=== PATIENT | female | born 1955 | race Two or more races ===

== ENCOUNTER 2024-02-13 18:56 | Emergency (ER) | payer MEDICARE, MEDICAID, SELFPAY ==
[2024-02-13 18:56] VITALS: BMI 18.0
[2024-02-13 19:38] VITALS: BP 158/83; PULSE 77; RESP 16; TEMP 36.8; O2SAT 100
--- NOTE | 2024-02-13 19:42 | XR_ITS ---
Examination: Shoulder,right, 3 views Technique: Shoulder AP internal rotation, AP external rotation, Y view shoulder, 3 views Exam date and time :1257 hrs. Indications: Patient fell today with injury to the shoulder, shoulder pain. Findings: Acute displaced fracture axillary border of the scapula subglenoid, 12 mm offset at the fracture site Impression: Acute fracture axillary border of the scapula
--- NOTE | 2024-02-13 19:42 | XR_ITS ---
Examination: Clavicle 2 views, right Technique: Clavicle AP, angled up AP, 2 views Exam date and time: February 13, 2024 1937 hrs. Indications: Patient fell today with injury to the shoulder, shoulder pain Findings: Acute fracture medial body of the scapula, 12 mm offset Clavicle intact Impression: Acute displaced fracture medial body of the clavicle
--- NOTE | 2024-02-13 19:42 | XR_ITS ---
Examination: Humerus 2 views right Technique: Humerus, AP lateral 2 views Date and time of exam: February 13, 2024 1957 hrs. Indications: Patient fell today with injury to the arm, arm pain Findings: No shoulder dislocation Humerus intact Acute fracture medial body scapula 12 mm offset Impression: Acute displaced scapular fracture
--- NOTE | 2024-02-13 19:43 | PD.EDRME ---
Rapid Medical Screening Exam E Arrival date/time: 02/13/24 18:56 68-year-old female presents emergency department complaining of right shoulder and upper arm pain status post accidental ground-level fall. Patient denies any LOC or injury to head or neck. Chief Complaint: Extremity Injury, Upper Time Seen by Provider: 02/13/24 19:42 Vital signs: Vital Signs Temperature 98.3 F 02/13/24 19:38 Pulse Rate 77 02/13/24 19:38 Respiratory Rate 16 02/13/24 19:38 Blood Pressure 158/83 H 02/13/24 19:38 Pulse Oximetry (%) 100 02/13/24 19:38 Oxygen Delivery Method Room Air 02/13/24 19:38 Vital signs reviewed by provider: Yes
[2024-02-13] MEDS: HYDROcodone/APAP 5/325 TABLET 1 TAB PO (20:24)
--- NOTE | 2024-02-13 20:58 | PD.EDUPEX ---
Upper Extremity Injury RME/HPI General Chief Complaint: Extremity Injury, Upper Stated Complaint: FALL AND HAS RT SHOULDER PAIN Time Seen by Provider: 02/13/24 19:42 Source: patient Arrival date/time: 02/13/24 18:56 68-year-old female presents emergency department complaining of right shoulder and upper arm pain status post accidental ground-level fall. Patient denies any LOC or injury to head or neck. Mode of arrival: ambulatory Limitations: no limitations RME / HPI RME / HPI narrative: 02/13/24 18:56 68-year-old female presents emergency department complaining of right shoulder and upper arm pain status post accidental ground-level fall. Patient denies any LOC or injury to head or neck. Related Data Home Medications ?Medication ?Instructions ?Recorded ?Confirmed amlodipine 10 mg tablet (Norvasc) 10 mg PO QDAY #0 tabs 04/29/15 06/03/23 aspirin 81 mg tablet,delayed 81 mg PO QDAY ##0 04/29/15 06/03/23 release (John Low Dose Aspirin) ergocalciferol (vitamin D2) 1,250 1 cap PO QWEEK 01/05/22 06/02/23 mcg (50,000 unit) capsule gabapentin 100 mg capsule 100 mg PO QDAY 02/17/23 06/02/23 Previous Rx's ?Medication ?Instructions ?Recorded hydrocodone 5 mg-acetaminophen 325 1 tab PO BID PRN pain #10 tabs 02/13/24 mg tablet Allergies Allergy/AdvReac Type Severity Reaction Status Date / Time No Known Allergies Allergy Verified 02/13/24 19:00 Review of Systems Review of Systems Systems Reviewed: All systems reviewed, normal except as documented Constitutional Constitutional: Reports system reviewed and no additional complaints, except as documented, Denies body ache(s), Denies chills and Denies fever(s) Eyes Eyes: Reports system reviewed and no additional complaints, except as documented and Denies change in vision ENT Ears, Nose, Mouth, and Throat: Reports system reviewed and no additional complaints, except as documented, Denies disequilibrium, Denies dizziness, Denies sore throat and Denies vertigo Cardiovascular Cardiovascular: Reports system reviewed and no additional complaints, except as documented, Denies chest pain and Denies dyspnea Respiratory Respiratory: Reports system reviewed and no additional complaints, except as documented, Denies chest congestion, Denies cough and Denies dyspnea Gastrointestinal Gastrointestinal: Reports system reviewed and no additional complaints, except as documented, Denies abdominal pain, Denies nausea and Denies vomiting Musculoskeletal Musculoskeletal: Reports system reviewed and no additional complaints, except as documented, Denies abnormal gait and Reports arthralgias Integumentary/Breasts Skin/Breast: Reports system reviewed and no additional complaints, except as documented, Denies erythema, Denies rash and Denies wounds Neurologic Neurologic: Reports system reviewed and no additional complaints, except as documented, Denies abnormal gait, Denies disequilibrium, Denies dizziness and Denies vertigo Past Medical History Past Medical History NEUROLOGIC: Negative Neurological Disorders, Seizures or Migraine CARDIAC: Positive Cardiac Disorders and Hypertension (TAKES MED); Negative Hypercholesterolemia, Congestive Heart Failure, Edema, Cellulitis or Varicose Veins RESPIRATORY: Negative Chronic Obstructive Pulmonary Disease (COPD), Asthma, Tuberculosis, Pulmonary Embolism or Sleep Apnea GASTROINTESTINAL: Positive Gastrointestinal Disorders, Gall Bladder Disease (LAP RAVEN), Ulcer and Gastroesophageal Reflux Disease; Negative Hepatitis GENITOURINARY: Negative Genitourinary Disorders or Renal Disease REPRODUCTIVE: Positive Previous Pregnancies (X5); Negative Pelvic Inflammatory Disease MUSCULOSKELETAL: Positive Musculoskeletal Disorders, Arthritis, Osteoporosis and Degenerative Disk Disease ENT: Positive Cataracts (left) and Glaucoma (NO MED AT THIS TIME) ENDOCRINE: Negative Endocrine Disorders, Diabetes Mellitus Type 1 or Diabetes Mellitus Type 2 HEMATOLOGIC: Negative Blood Disorders OTHER HISTORY: Positive Chicken Pox; Negative Hospitalization, Autoimmune Disease, Shingles, Falls, Blood Transfusions, Blood Transfusion Reaction, Anesthesia Reactions, Chemotherapy, Radiation Therapy, MRSA, Measles, Mumps or Cancer Family History FAMILY HISTORY: Positive Family Respiratory Disorders (BROTHER (ASTHMA,LUNG)), Family Cardiac Disorders (MOTHER,FATHER,BROTHER,SISTER (HTN)), Family Gastrointestinal Problems (SISTER (STOMACH)), Family Cancer (SISTER (STOMACH),BROTHER (LUNG)) and Family Surgery (SISTER,BROTHER,FATHER,MOTHER); Negative Family Psychiatric Problems or Family Anesthesia Reaction Surgical History SURGICAL: Positive Abdominal Surgery; Negative Cardiac Surgery, Pacemaker, Endocrine Surgery, Ear Surgery or Joint Replacement Social History SMOKING STATUS: Current some day smoker SECOND HAND EXPOSURE: No ED Exam General Limitations: Present no limitations General appearance: Present alert and in no apparent distress Head Head exam: Present atraumatic Eye Eye exam: Present normal appearance, PERRL and EOMI ENT ENT exam: Present normal exam, normal oropharynx and mucous membranes moist Neck Neck exam: Present normal inspection, full ROM and trachea midline Chest Chest inspection: Present normal inspection and symmetric chest wall rise Respiratory Respiratory exam: Present normal lung sounds bilaterally Cardiovascular Cardiovascular exam: Present regular rate, normal rhythm and normal heart sounds Abdominal Exam Abdominal exam: Present soft and normal bowel sounds Extremities Exam Extremities exam: Present normal inspection and full ROM Expanded Upper Extremity Exam Shoulder exam: Present full ROM (Limited active range of motion right shoulder) and tenderness (Right shoulder) Vascular exam: Normal capillary refill Back Exam Back exam: Present normal inspection and full ROM Neurological Exam Neurological exam: Present alert, oriented X3 and CN II-XII intact Psychiatric Psychiatric exam: Present normal affect and normal mood Skin Skin exam: Present warm, dry, intact and normal color Course Quality Measures none Orders Category Date Time Status sling [Splint / Immobilizer] STAT Care 02/13/24 20:59 Completed XR clavicle RT Stat Exams 02/13/24 19:42 Completed XR humerus RT min 2V Stat Exams 02/13/24 19:42 Completed XR shoulder RT min 2V Stat Exams 02/13/24 19:42 Completed HYDROcodone*/APAP 5/325 [[place] 5/325] Med 02/13/24 19:42 Discontinued 1 tab PO X1 ONE Vital Signs Vital signs: Vital Signs Temperature 98.3 F 02/13/24 19:38 Pulse Rate 77 02/13/24 19:38 Respiratory Rate 16 02/13/24 19:38 Blood Pressure 158/83 H 02/13/24 19:38 Pulse Oximetry (%) 100 02/13/24 19:38 Oxygen Delivery Method Room Air 02/13/24 19:38 100% room air within normal limits Procedures -ED Splint Fabrication: Pre-Fabricated Type: Other (Sling) Reason for Splint: Optimal Positioning, Pain Management, Minimize Deformities and Support Joint/Muscle Site condition: Intact Circulation Distal to Splint: Yes Movement Distal to Splint: Yes Senation Distal to Splint: Yes Tolerance: Tolerates Well Extremity Injury MDM Narrative MDM Narrative:: 68-year-old female presents emergency department complaining of right shoulder and upper arm pain status post accidental ground-level fall. Patient denies any LOC or injury to head or neck. X-ray of right shoulder findings Acute fracture axillary border of the scapula. X-ray findings right clavicle Acute displaced fracture medial body of the clavicle. Patient's right lower extremity neurovascularly intact. Dr. Rios on-call orthopedist consulted and instructed to place patient on sling and have patient follow-up in his office on at 10 AM. Patient appears nontoxic and hemodynamically stable. Patient discharged home on pain medication and instructions given to patient and family. Patient data External records reviewed:: [facility] previous records Clinical information provided by:: patient Social determinants that could affect healthcare access:: none Patient has the following chronic illnesses:: See chart How is presenting disease/condition affected by chronic disease/condition?: uneffected by Evaluation data The following diagnostics were reviewed and interpreted by me:: radiology exam(s) Lab and/or radiology exams considered but not ordered:: Ordered Interpretation Summary: Interpreted by me Medications / Prescriptions Medications or Prescriptions considered but not ordered:: Ordered Medication administrations:: Medication Administration History Discontinued Medications Hydrocodone Bitart/Acetaminophen (Hydrocodone/Apap 5/325 Tablet) 1 tab PO X1 ONE Stop: 02/13/24 19:43 Last Admin: 02/13/24 20:24 Dose: 1 tab Documented By: Given Consultations Consultation(s) initiated? (list below): No Diagnosis Upper Extremity Injury Differential Diagnosis: dislocation of shoulder, fracture of humerus and fracture of clavicle Most likely diagnosis given after review of the tests above:: Clavicle fracture Scapula fracture Admission Indicated Admission indicated?: not indicated Admission Request Was there a request for admission?: No Disposition Plan Disposition Plan: Discharge Discharge Attestation Discharge Attestation: The patient and all family members were given an opportunity to ask questions and understood the discharge instructions. Discharge instructions specifically effects, indications for sooner follow up or return to the emergency department, and the expected course of current diagnosis. Patient condition: Stable Discharge Plan Plan Patient Disposition: HOME (Self Care) Disposition Comment: Stable Prescriptions/Referrals Prescriptions/Med Rec: New hydrocodone-acetaminophen 5-325 mg tablet 1 tab PO BID MDD 2 tabs PRN (Reason: pain) Qty: 10 0RF No Action aspirin [John Low Dose Aspirin] 81 mg Tablet,Delayed Release (Dr/Ec) 81 mg PO QDAY Qty: 0 amlodipine [Norvasc] 10 MG tablet 10 mg PO QDAY Qty: 0 ergocalciferol (vitamin D2) 1,250 mcg (50,000 unit) capsule 1 cap PO QWEEK gabapentin 100 mg Capsule 100 mg PO QDAY Referrals: Ga Rios MD [Physician] - 02/16/24 10:00 am Ayaan Huang PA-C [Primary Care Provider] - In 1 week Problem List Clinical Impression: Clavicle fracture, Fracture of scapula Patient/Caregiver Discharge Instructions Additional Instructions: Take medication as prescribed. Use sling as instructed. Follow-up with Dr. Rios his office on at 10 AM. Return to emergency department for any worsening symptoms or as needed Print Language: Yakut Stand Alone Forms: Barbara Award Info., Patient Portal Info Letter MD Attestation MD Attestation The patient was seen by the midlevel practitioner. I, the co-signing physician, was present during the entire ER visit. While I did not physically examine the patient, I was available for consultation as needed.
== END 2024-02-13 21:50 | disposition home or self-care (01) ==
PROVIDERS: Emergency Provider Emergency Medicine; PCP Physician Assistant
DX: S42.011A Anterior displaced fracture of sternal end of right clavicle, initial encounter for closed fracture (principal); S42.111A Displaced fracture of body of scapula, right shoulder, initial encounter for closed fracture; W18.30XA Fall on same level, unspecified, initial encounter
CPT/HCPCS: 73000; 73030; 73060; 99283; A4565; A9270

== ENCOUNTER 2024-05-03 12:51 | Outpatient (RCR) | payer MEDICARE, MEDICAID, SELFPAY ==
--- NOTE | 2024-05-03 13:16 | PTNOTE_ITS ---
PT OP Initial Eval Patient Information Outpatient Physical Therapy Treatment Date: 05/03/24 Visit Reasons: FX of right shoulder Medical Diagnosis: S42.111D Treatment Dx #1: R shoulder pain Start of Care: 05/03/24 Date of Onset: 01/13/24 Smoking Status Smoking Status: Current some day smoker Cessation Counseling Provided: ARCHANA was advised that quitting smoking is the single most important factor to protect the health of themselves and their family. Discussed the benefits of quitting smoking with patient. Encouraged patient to quit smoking and provided Cessation assistance materials and resources. Tobacco Use: Cigarette Years smoked: 30 Are you interested in quitting?: No Would you like additional Smoking Cessation Counseling?: No Initial Assessment Subjective: Pt is 68 yr old Belarusian speaking female here with her son to interpret. Pt fell down a step and injured R shoulder in January. Since then she has felt less shoulder pain but it hurts to reach up and behind the back. PLOF: pt had full use of R shoulder with ADL's and functional activities. PMH: HTN, R knee A/S Pt goal: to reach behind her back more and without pain Objective: R shoulder ArOM: FF: 120 deg ABD: 110 deg ER: 80 deg HBB: to R hip with pain Strength: 4-/5 in all planes Assessment: Pt presents with decreased R shoulder ROM and strength s/p scapula FX. Pt requires skilled therapy to meet goals and she has fair/good rehab potential. Short Term and Long-Term Goals 1. Ind with HEP 2. Improved AROM into all planes to at least 130 deg FF and abduction and behind back to L5 3. Pt will reach OH and behind back with <=3/10 R shoulder pain 4. Improved strength into all planes to at least 4/5 Treatment Plan 90 day POC ? 1. Manual therapy ? 2. Therex ? 3. Modalities as indicated, moist heat, ice, estim ? Frequency and Duration: 2x a week for 16 visits Certification Dates: 05/03/24 to 07/30/24 Procedure Charges OP PT Eval Mod Complex 30 minutes: Yes
== END 2024-05-04 23:59 | disposition home or self-care (01) ==
LOC: CPTX 12:51
PROVIDERS: PCP Physician Assistant; Referring Provider Physician Assistant; Visit Provider Physician Assistant
DX: M25.511 Pain in right shoulder (principal); S42.111D Displaced fracture of body of scapula, right shoulder, subsequent encounter for fracture with routine healing; W10.9XXD Fall (on) (from) unspecified stairs and steps, subsequent encounter; Z71.6 Tobacco abuse counseling; F17.210 Nicotine dependence, cigarettes, uncomplicated; I10 Essential (primary) hypertension
CPT/HCPCS: 97162

== ENCOUNTER 2024-05-23 11:00 | Outpatient (RCR) | payer MEDICARE, MEDICAID, SELFPAY ==
--- NOTE | 2024-05-07 11:38 | PT.ODAYNRPT ---
PT Outpatient Daily Note OP Daily Note Outpatient Physical Therapy Treatment Date: 05/07/24 Visit Reasons: RIGHT SHLD FRACTURE Subjective: Some pain with abduction and points to the mid deltoid region Objective: See F/S for therex P x5' R shoulder Assessment: L shoulder pain into abduction at about 90 deg consistent with poor RC firing and impingement Plan: Continue per POC Length of Time (minutes) of Treatment: 30 Minutes Procedure Charges Therapeutic Exercise 30 minutes: Yes
--- NOTE | 2024-05-10 12:01 | PT.ODAYNRPT ---
PT Outpatient Daily Note OP Daily Note Outpatient Physical Therapy Treatment Date: 05/10/24 Visit Reasons: RIGHT SHLD FRACTURE Subjective: Some pain with abduction and points to the mid deltoid region Objective: See F/S for therex P x5' R shoulder Assessment: L shoulder pain into abduction at about 90 deg consistent with poor RC firing and impingement. Less pain with reaching behind back to about L5 Plan: Continue per POC Length of Time (minutes) of Treatment: 30 Minutes Procedure Charges Therapeutic Exercise 30 minutes: Yes
--- NOTE | 2024-05-17 11:52 | PT.ODAYNRPT ---
PT Outpatient Daily Note OP Daily Note Outpatient Physical Therapy Treatment Date: 05/17/24 Visit Reasons: RIGHT SHLD FRACTURE Subjective: Some pain with abduction and points to the mid deltoid region Objective: See F/S for therex Ice x5' R shoulder Assessment: L shoulder pain into abduction at about 90 deg consistent with poor RC firing and impingement. Increased pain after AAROM into abduction Plan: Continue per POC Length of Time (minutes) of Treatment: 30 Minutes Procedure Charges Therapeutic Exercise 30 minutes: Yes
--- NOTE | 2024-05-23 11:39 | PT.ODAYNRPT ---
PT Outpatient Daily Note OP Daily Note Outpatient Physical Therapy Treatment Date: 05/23/24 Visit Reasons: RIGHT SHLD FRACTURE Subjective: No complaints, pt speaks very little Barbadian. Objective: Please see flow sheet for ther ex list. Assessment: Progressed interventions, pt able to complete assigned reps. Plan: Continue with POC. Length of Time (minutes) of Treatment: 30 Minutes GASATERIA ATTENDANT Service Modifier Method I: Divide the number of min of care provided by the GASATERIA ATTENDANT/LANCE CREWMEMBER/MLRS SERGEANT by the total min of care provided then multiply by 100. If greater than 11 percent modifier is required. Method II: Divide the total time of care provided to patient by 10 (round to the nearest whole number) and add 1 min. to set the minimum time requirement. If treatment total was 60 min., then 10% of 6 min PT CQ modifier applied: CQ Modifier applied Procedure Charges Therapeutic Exercise 30 minutes: Yes
== END 2024-06-01 23:59 | disposition home or self-care (01) ==
LOC: CPTX 11:00
PROVIDERS: PCP Physician Assistant; Referring Provider Physician Assistant; Visit Provider Physician Assistant
DX: M25.511 Pain in right shoulder (principal); S42.111D Displaced fracture of body of scapula, right shoulder, subsequent encounter for fracture with routine healing; W10.9XXD Fall (on) (from) unspecified stairs and steps, subsequent encounter; I10 Essential (primary) hypertension
CPT/HCPCS: 97110

== ENCOUNTER 2024-06-27 10:00 | Outpatient (RCR) | payer MEDICARE, MEDICAID, SELFPAY ==
--- NOTE | 2024-06-14 10:42 | PT.ODAYNRPT ---
PT Outpatient Daily Note OP Daily Note Outpatient Physical Therapy Treatment Date: 06/14/24 Visit Reasons: Rt shoulder fracture Subjective: Pt reports R shoulder is hurting and points bicep region and shoulder. Objective: Please see flow sheet for ther ex list. Assessment: Pt demonstrates minimal pain with added shoulder ther ex but determined to complete. Plan: Continue with POC. Length of Time (minutes) of Treatment: 30 Minutes Procedure Charges Therapeutic Exercise 30 minutes: Yes
--- NOTE | 2024-06-20 10:01 | PT.ODAYNRPT ---
PT Outpatient Daily Note OP Daily Note Outpatient Physical Therapy Treatment Date: 06/20/24 Visit Reasons: Rt shoulder fracture Subjective: Subjective assessment limited due to language barrier. Pt c/o pain pointing to B elbows. Objective: Please see flow sheet for ther ex list. Shoulder flexion AROM R: 143 deg. Assessment: Pt ROM progressing indicated by above measurements. Plan: Continue with pOC. Length of Time (minutes) of Treatment: 30 Minutes Procedure Charges Therapeutic Exercise 30 minutes: Yes
--- NOTE | 2024-06-27 11:09 | PTNOTE_ITS ---
PT Outpatient Daily Note OP Daily Note Outpatient Physical Therapy Treatment Date: 06/27/24 Visit Reasons: Rt shoulder fracture Subjective: Pt c/o R shoulder pain pointing to R shoulder blade. Objective: Please see flow sheet for ther ex list. Assessment: Pt shoulder ROM continues to improve, focus on restoring functional strength as tolerated. Plan: Continue with pOC. Length of Time (minutes) of Treatment: 30 Minutes WELL TESTING OPERATOR Service Modifier Method I: Divide the number of min of care provided by the WELL TESTING OPERATOR/BETO by the total min of care provided then multiply by 100. If greater than 11 percent modifier is required. Method II: Divide the total time of care provided to patient by 10 (round to the nearest whole number) and add 1 min. to set the minimum time requirement. If treatment total was 60 min., then 10% of 6 min PT CQ modifier applied: CQ Modifier applied Procedure Charges Therapeutic Exercise 30 minutes: Yes
== END 2024-07-02 23:59 | disposition home or self-care (01) ==
LOC: CPTX 10:00
PROVIDERS: PCP Physician Assistant; Referring Provider Physician Assistant; Visit Provider Physician Assistant
DX: M25.511 Pain in right shoulder (principal); S42.111D Displaced fracture of body of scapula, right shoulder, subsequent encounter for fracture with routine healing; W10.9XXD Fall (on) (from) unspecified stairs and steps, subsequent encounter; I10 Essential (primary) hypertension
CPT/HCPCS: 97110

== ENCOUNTER 2024-08-01 10:00 | Outpatient (RCR) | payer MEDICARE, MEDICAID, SELFPAY ==
--- NOTE | 2024-07-04 10:27 | PT.ODAYNRPT ---
PT Outpatient Daily Note OP Daily Note Outpatient Physical Therapy Treatment Date: 07/04/24 Visit Reasons: Right shoulder fracture Subjective: Pt reports she can reach further behind back demonstrates by reaching back with both hands but c/o pain on the top of the scapula. Objective: Please see flow sheet for ther ex list. Assessment: Pt ROM of R shoulder continues to improve. Plan: Continue with pOC. Length of Time (minutes) of Treatment: 30 Minutes Procedure Charges Therapeutic Exercise 30 minutes: Yes
--- NOTE | 2024-07-11 10:28 | PT.ODAYNRPT ---
PT Outpatient Daily Note OP Daily Note Outpatient Physical Therapy Treatment Date: 07/11/24 Visit Reasons: Right shoulder fracture Subjective: No new complaints or concerns. Objective: Please see flow sheet for ther ex list. Assessment: Progression of interventions completed with muscle fatigue, pt rested in between reps. Plan: Continue with pOC. Length of Time (minutes) of Treatment: 30 Minutes Procedure Charges Therapeutic Exercise 30 minutes: Yes
--- NOTE | 2024-07-18 10:36 | PT.ODAYNRPT ---
PT Outpatient Daily Note OP Daily Note Outpatient Physical Therapy Treatment Date: 07/18/24 Visit Reasons: Right shoulder fracture Subjective: Pt point to R shoulder and said it hurts when she sleeps. Objective: Please see flow sheet for ther ex list. Assessment: Strengthening interventions progress slow due to pt pain response to strengthening with light resistance. Plan: Continue with poC. Length of Time (minutes) of Treatment: 30 Minutes Procedure Charges Therapeutic Exercise 30 minutes: Yes
--- NOTE | 2024-07-25 09:45 | PT.ODAYNRPT ---
PT Outpatient Daily Note OP Daily Note Outpatient Physical Therapy Treatment Date: 07/25/24 Visit Reasons: Right shoulder fracture Subjective: Pt points to lateral deltoid area, c/o pain. Objective: Please see flow sheet for ther ex list. Assessment: Scapulothoracic strengthening interventions completed with muscle fatigue. Plan: Continue with POC. Length of Time (minutes) of Treatment: 30 Minutes Procedure Charges Therapeutic Exercise 30 minutes: Yes
--- NOTE | 2024-08-01 14:52 | PT.ODS1RPT ---
PT OP Progress/Discharge Note Date of Service: 08/01/24 Progress Note/DC Note Progress Note/Discharge Note: Progress Note Patient Information Visit Reasons: Right shoulder fracture Service Continue Service or Discharge: Continue Service Status Subjective: Pt's dtr interpreted for Indonesian speaking patient who reports improved ROM since starting therapy and less R shoulder pain but it still hurts to reach the UE behind her (into horizontal abduction) Objective: R shoulder AROM: FF: 130 deg Abd: 120 deg ER: 80 deg HBB: L5 slowly with slight pain Assessment: Pt has attended the eval and 11 Rx sessions with good progress with therapy goals. She has improved AROM to meet the FF goal and is about 10 deg shy of abduction goal of 130 deg. Pt would benefit from continued therapy to improve ROM and reach behind the back with less pain and continue with light strengthening. Plan: We need provider's signature on this progress note to extend POC dates from 07/30/24 to 08/29/24 in order to finish remaining 4 visits for a total of 16. Procedure Charges Therapeutic Exercise 30 minutes: Yes
== END 2024-08-01 23:59 | disposition home or self-care (01) ==
LOC: CPTX 10:00
PROVIDERS: PCP Physician Assistant; Referring Provider Physician Assistant; Visit Provider Physician Assistant
DX: M25.511 Pain in right shoulder (principal); S42.111D Displaced fracture of body of scapula, right shoulder, subsequent encounter for fracture with routine healing; W10.9XXD Fall (on) (from) unspecified stairs and steps, subsequent encounter; I10 Essential (primary) hypertension
CPT/HCPCS: 97110

== ENCOUNTER 2024-08-08 10:10 | Outpatient (RCR) | payer MEDICARE, MEDICAID, SELFPAY | END 2024-09-01 23:59 | disposition home or self-care (01) | LOC: CPTX 10:10 | PROVIDERS: PCP Physician Assistant; Referring Provider Physician Assistant; Visit Provider Physician Assistant | DX: Z53.9 Procedure and treatment not carried out, unspecified reason (principal) ==

== ENCOUNTER → 2024-08-29 | Outpatient (CLI) | payer MEDICARE, MEDICAID, SELFPAY ==
--- NOTE | 2024-08-29 10:45 | XR_ITS ---
Examination: Screening digital mammography, bilateral Computer aided detection 3-D breast Tomosynthesis, bilateral Date and time of exam: August 21, 2024 1048 hours Compared to mammograms dating to June 24, 2017 Indication: Screening Technique: Nonmagnified MLO, CC views of the breasts to been obtained, reconstructed from 3-D Tomosynthesis images. R2 computer aided detection program utilized for evaluation of suspicious masses and/or abnormal calcifications. 3-D Tomosynthesis images obtained. Findings: Scattered areas of fibroglandular density. Benign calcifications. No interval suspicious masses Impression: BI-RADS category II: Benign Findings. Recommend 1 year follow-up mammogram.
== END | disposition home or self-care (01) ==
PROVIDERS: Referring Provider Physician Assistant; Visit Provider Physician Assistant
DX: Z12.31 Encounter for screening mammogram for malignant neoplasm of breast (principal); R92.323 Mammographic fibroglandular density, bilateral breasts; R92.1 Mammographic calcification found on diagnostic imaging of breast
CPT/HCPCS: 77063; 77067